=== PATIENT | male | born 1980 | race Caucasian/White ===

== ENCOUNTER 2021-01-15 16:03 | Emergency (ER) | payer OTHER, SELFPAY ==
[2021-01-15 16:36] VITALS: BP 120/68; PULSE 82; RESP 18; TEMP 37; O2SAT 97; BMI 28.1
--- NOTE | 2021-01-15 16:56 | XRR_ITS ---
PROCEDURE INFORMATION: Exam: XR Right Knee Exam date and time: 01/15/2021 5:02 PM Age: 40 years old Clinical indication: Injury or trauma; Other: Hatchet to knee; Laceration; Patella or knee; Right; Foreign body involvement not specified; Additional info: Hatchet injury TECHNIQUE: Imaging protocol: XR Right knee. Views: 3 views. COMPARISON: No relevant prior studies available. FINDINGS: Bones/joints: No acute displaced fracture or dislocation. Soft tissues: Normal. XR/XR knee RT 3V* [id number] IMPRESSION: No acute findings.
--- NOTE | 2021-01-15 18:00 | ED_ITS ---
HPI - Extremity Problem General: Chief complaint: Extremity Injury, Lower Stated complaint: R LEG INJURY Time Seen by Provider: 01/15/21 16:45 Source: patient Mode of arrival: ambulatory Limitations: no limitations History of Present Illness: HPI Narrative: 40-year-old male was squatting trees with a hatchet and during one of the swings he missed and hit his right lower extremity just below his knee. He sustained a laceration to the knee and is here to be evaluated. MD Complaint: extremity pain Onset (ago): hour(s) (6) Pain Consistency: constant Location: right Quality: sharp and constant Radiation: none Relieving factors: nothing Exacerbating factors: nothing Associated symptoms: Deny arthralgias, chest pain, fever(s), myalgias, rash or short of breath Review of Systems General: Reports: 10 or more systems reviewed and unremarkable except in HPI and below Const: Denies: fever(s) Card: Denies: chest pain Physical Exam Const: COMMON NORMALS: no acute distress, average body habitus, patient oriented x3, no limitations, healthy appearing, alert and well nourished Neck/C-Spine: COMMON NORMALS: no JVD Resp: COMMON NORMALS: normal respiratory effort, No retractions, No use of accessory muscles, clear to auscultation bilaterally and percussion normal AUSCULTATION: clear to auscultation bilaterally PERCUSSION: percussion normal Cardio: COMMON NORMALS: no JVD, regular rate, regular rhythm, S1 normal heart sound present, S2 normal heart sound present, No gallops present (Cardio), No clicks present (Cardio), No murmurs present (Cardio), No rub (Cardio) and Peripheral pulses 2+ throughout RATE: regular rate RHYTHM: regular rhythm HEART SOUNDS: S1 normal heart sound present and S2 normal heart sound present PERIPHERAL PULSES: Peripheral pulses 2+ throughout GI: COMMON NORMALS: Normal to inspection, nondistended, normoactive bowel sounds present, Soft to palpation, non-tender, No hepatosplenomegaly present, no masses and no bruits PALPATION: Yes Soft to palpation and Yes No hepatosplenomegaly present Extremity: COMMON NORMALS: normal to inspection, full ROM, capillary refill normal, no calf tenderness and no pedal edema Neuro: COMMON NORMALS: patient oriented x3 SENSORIUM/ORIENTATION: Yes alert Skin: COMMON NORMALS: no rashes or lesions noted, no wounds, turgor normal, no jaundice, no petechiae and no mottling GENERAL SKIN EXAM: no rashes or lesions noted and turgor normal TRAUMA: laceration (6 cm laceration just distal to the right knee, involving subcutaneous tissu) linear, involves subcutaneous tissue and sensation intact; not actively bleeding, no foreign bodies present and not contaminated Procedures Laceration Laceration 1: Site: lower extremity Side (If applicable): right Size (cm): 6 Description: linear Depth: involves muscle layer Local Anesthetic: lidocaine 2% and with epi Amount of anesthesia used (mL): 5 Pre-repair: wound explored and irrigated extensively Skin layer closed with: nylon Size (cm): 4-0 Number of sutures: 5 Technique: horizontal mattress Size: 4-0 Number of sutures: 2 Course Reevaluation(s): Reevaluation #1: Wound sutured, discussed his x-ray findings with him, wound care instructions given to him. He voiced understanding and is in agreement with the plan. Time: 18:00 Vital Signs: Vital signs: Vital Signs Temperature 98.6 F 01/15/21 16:36 Pulse Rate 82 01/15/21 16:36 Respiratory Rate 18 01/15/21 16:36 Blood Pressure 120/68 01/15/21 16:36 Pulse Oximetry 97 01/15/21 16:36 MDM - Extremity (Nontraumatic) MDM Narrative: Medical decision making narrative: 40-year-old male who sustained a right leg laceration when a hatchet hit his leg. On x-ray there is no fracture noted although it appears the bone was nicked on examination. Wound was sutured after being thoroughly irrigated. He was given a dose of intramuscular ceftriaxone and discharged home with cephalexin because the wound surface was breached. The patient refused a tetanus vaccine. He understood the risks for tetanus involved but did not want to vaccine. Medical Records: Attestation: I reviewed the patient's medical records. Imaging Data^: Xray Ortho: Attestation: I personally reviewed and interpreted this imaging study as follows: Radiologist's impression: [address] [address] XRay Report Signed Patient: Sarai CUELLAR #: [id number] : 1980Acct#:[id number] Age/Sex: 40 / MADM Date: 01/15/21 Loc: ERRoom/Bed: Attending Dr: Ordering Provider/Ordering MD: Afshin Jaimes MD, [facility] [place] Date of Service: 01/15/21 Procedure(s): XR knee RT 3V* [id number] Accession Number(s): [id number] Report Number: [id number] PROCEDURE INFORMATION: Exam: XR Right Knee Exam date and time: 01/15/2021 5:02 PM Age: 40 years old Clinical indication: Injury or trauma; Other: Hatchet to knee; Laceration; Patella or knee; Right; Foreign body involvement not specified; Additional info: Hatchet injury TECHNIQUE: Imaging protocol: XR Right knee. Views: 3 views. COMPARISON: No relevant prior studies available. FINDINGS: Bones/joints: No acute displaced fracture or dislocation. Soft tissues: Normal. XR/XR knee RT 3V* [id number] IMPRESSION: No acute findings. Dictated By:Min Barr Signed By:Ana Barr Date/Time:01/15/211742 DD/ 41 Discharge Plan Discharge Patient Disposition: Home Clinical Impression: Laceration of leg Qualifiers: Encounter type: initial encounter Laterality: right Qualified Code(s): S81.811A - Laceration without foreign body, right lower leg, initial encounter Condition: Stable Prescriptions: New cephalexin 500 mg capsule 500 mg PO Q8H 7 Days Qty: 21 RF: 0 Continued K[employer] See Rx Instructions .ROUTE .COMPLEX RF: 0 Discharge Orders: Discharge ED (Routine); Ordered 01/15/21 Ordered By: Afshin Jaimes Discharge Diet: Usual diet Discharge Activity: Increase activity as tolerated Patient Instructions: Laceration (ED) Activity Restrictions/Additional Instructions: Return for any new or worsening symptoms. Follow-up with your primary care provider within 1 week. The stitches will need to come out within 7 to 10 days so follow-up with your PCP to have them taken out. Coding Level of Care Code ED Behavior Support Specialist for Suresh Hawkins
[2021-01-15] MEDS: cefTRIAXone 1,000 MG in lidocaine 1% 2.1 ML 1 MG IM (18:08)
== END 2021-01-15 18:18 | disposition home or self-care (01) ==
PROVIDERS: Emergency Provider Family Medicine
DX: S81.811A Laceration without foreign body, right lower leg, initial encounter (principal); W26.8XXA Contact with other sharp object(s), not elsewhere classified, initial encounter
CPT/HCPCS: 12032; 73562; 96372; 99283; J0696